=== PATIENT | female | born 1940 | race Caucasian/White ===

== ENCOUNTER 2023-12-16 20:25 | Emergency (ER) | payer MEDICARE, SELFPAY ==
[2023-12-16] VITALS (18 sets, daily range): BP systolic 149–207; BP diastolic 60–144; PULSE 73–95; RESP 13–23; TEMP 37.2; O2SAT 90–96
--- NOTE | ~2023-12-16 | XR_ITS ---
XR chest 1V portable Ordering provider: Shraddha Mackenzie MD History: 83 years Female with . stroke w/u . Comparison: None. FINDINGS: MEDIASTINUM: The cardiac silhouette is not enlarged. Congestive duane LUNGS: No infiltrates, effusions or pneumothorax. OTHER: No free air under the diaphragm. Degenerative spine. IMPRESSION: No acute cardiopulmonary pathology. Reviewed, dictated and finalized at location A.
--- NOTE | ~2023-12-16 | CT_ITS ---
CTA brain carotid Ordering provider: Shraddha Mackenzie MD History: . cva . Comparison: None. Technique: CT angiogram head and neck was performed following timed intravenous injection of contrast . Thin slice axial images and reformatted coronal images were obtained. Three dimensional reformatted images of the brain were also obtained using a [employer] workstation. Radiation reduction technique ut ilized.The dose-length product was 768.39 mGy-cm. 100 mL Omnipaque 350 was given IV. FINDINGS: HEAD: --ANTERIOR AND MIDDLE CEREBRAL ARTERIES AND BRANCHES: Normal caliber and contour. --INTERNAL CAROTID ARTERIES: Mild atheromatous disease but no significant stenosis. No occlusion. --BASILAR ARTERY AND BRANCHES: Normal caliber and contour. No atheromatous disease. --POSTERIOR CEREBRAL ARTERIES: Normal caliber and contour --POSTERIOR COMMUNICATING ARTERIES: The right is demonstrated and continues as posterior cerebral art good. The left is Not visualized which is probably related to congenital absence or small size. --ANEURYSM: None visualized. --BRAIN: Please refer to report of CT head performed the same day. --BONES AND SUPERFICIAL SOFT TISSUES: Please refer to report of CT head performed the same day. --PARANASAL SINUSES AND MASTOIDS: Please refer to report of CT head done the same day. The left transverse venous sinus is not well demonstrated may be congenitally absent or thrombosis ei ther acute or chronic. NECK: --RIGHT CERVICAL CAROTID SYSTEM: Mild atheromatous disease of the carotid bulb and proximal internal carotid artery without significant stenosis. Percent stenosis per NASCET criteria is 0% No carotid d issection. Otherwise, no significant atheromatous disease or stenosis of the cervical carotid system. --LEFT CERVICAL CAROTID SYSTEM: Mild atheromatous disease of the carotid bulb and proximal internal c arotid artery without significant stenosis. Percent stenosis per NASCET criteria is 0%. No carotid d issection. Otherwise, no significant atheromatous disease or stenosis of the cervical carotid system. --VERTEBRAL ARTERIES: Normal caliber and contour. --SOFT TISSUES: Normal. --CERVICAL SPINE: Age appropriate degenerative changes. IMPRESSION: 1. CTA head and neck. Percent stenosis per NASCET criteria is 0%. 2. No significant stenosis or occlusion seen in the intracranial vessels. 3. The left transverse venous sinus is not demonstrated which may be congenitally absent or acute ve rsus chronic process. Clinical correlation advised Reviewed, dictated and finalized at location A. IMPRESSION: 1. CTA head and neck. Percent stenosis per NASCET criteria is 0%. 2. No significant stenosis or occlusion seen in the intracranial vessels. 3. The left transverse venous sinus is not demonstrated which may be congenita lly absent or acute versus chronic process. Clinical correlation advised
--- NOTE | ~2023-12-16 | CT_ITS ---
EXAMINATION: CT brain wo con DATE: 12/16/2023 23:16 INDICATION: Worsening weakness TECHNIQUE: Computed tomography (CT) of the head was performed without intravenous contrast. Sagittal and coronal reconstructions were performed. The mA was adjusted according to patient size. Iterative reconstruction technique was employed. The dose-length product was 681.00 mGy-cm. COMPARISON: head CT head CT angiogram from 12/16/2023 at 8:49 PM FINDINGS: No acute intracranial hemorrhage, acute infarction or abnormal extra axial fluid collection. There is some residual contrast from the prior contrast enhanced imaging. There is mild scattered white matte r hypoattenuation consistent with chronic small vessel ischemic disease. Ventricles are normal and s ymmetric. No mass/mass effect. Changes of bilateral intraocular lens replacement. The orbits, paranas al sinuses and mastoid air cells are normal. IMPRESSION: 1. No acute intracranial process. 2. Mild scattered white matter hypoattenuation consistent with chronic small vessel ischemic disease. Reviewed, dictated and finalized at location A. IMPRESSION: 1. No acute intracranial process. 2. Mild scattered white matter hypoattenuation consistent with chronic small ve ssel ischemic disease.
--- NOTE | ~2023-12-16 | CT_ITS ---
CT brain wo con Ordering provider: Shraddha Mackenzie MD History: 83 years Female with . CVA . Comparison: None. Technique: CT of the head without contrast. Radiation reduction technique utilized.The dose-length product was 605.33 mGy-cm. FINDINGS: BRAIN PARENCHYMA AND CSF SPACES: Mild leukoaraiosis and diffuse cortical atrophy. Mild atheromatous d isease. P No midline shift, mass effect or hemorrhage. The brain parenchyma and CSF spaces are other cage normal. VISUALIZED PARANASAL SINUSES: Well aerated. MASTOIDS: Well aerated. BONES: The bones appear intact. SOFT TISSUES: Visualized nasopharynx is normal. Superficial soft tissues are normal. IMPRESSION: No acute intracranial findings. Reviewed, dictated and finalized at location A.
--- NOTE | 2023-12-16 20:30 | ECG_ITS ---
Test Date: 2023-12-16 21:05:36 Measurements Intervals [place] Rate: 88 P: 55 AR: 252 QRS: 4 QRSD: 92 T: 23 QT: 347 QTc: 421 Interpretive Statements SINUS RHYTHM WITH FIRST DEGREE AV BLOCK BORDERLINE ST ABNORMALITY- DIFFUSE LEADS BASELINE ARTIFACT- I, II, III, AVR, AVL, AVF, V1-V6 BORDERLINE ECG No previous ECG available for comparison Electronically Signed On 12-17-2023 06:33:27 CDT by Sean Palacios D.O.
--- NOTE | 2023-12-16 20:42 | ED.NEUROSD ---
HPI - Neuro Symptoms/Deficit General Chief Complaint: Suspected CVA Stated Complaint: code stroke Time Seen by Provider: 12/16/23 20:42 Source: patient and EMS Mode of arrival: EMS History of Present Illness HPI Narrative: Patient presents with concern for stroke. She was a stroke activation by EMS. Reported last known well is 7:00 p.m. confirmed that this was a time that she was witnessed to be normal. Patient verifies she was at her baseline mentation and acutely at approximately 7:00 p.m. she noticed changes. No history of TIA or CVA per patient. Reported blood glucose of 109 mg/dL for EMS. She was also reportedly a hypertensive for EMS. No medications have yet been given. Patient states she was recently placed on blood pressure medication but then states this was incorrect, she is only on a statin and a thyroid medication. Not on anticoagulation. Right hand dominant. Related Data Allergies Allergy/AdvReac Type Severity Reaction Status Date / Time No Known Allergies Allergy Verified 12/16/23 21:32 [facility] Past Medical History Medical History (Updated 12/16/23 @ 22:26 by Shraddha Mackenzie MD) Hyperlipidemia Right hand dominant Thyroid disorder Social History Social History Living arrangements: alone Exam Narrative: GENERAL: Well-appearing, well-nourished, and in no acute distress. HEAD: Normocephalic, atraumatic. EYES: Non injected, non icteric. Horizontal extraocular movements intact. Difficulty performing visual field assessment though appears to have difficulty with peripheral duong. ENT: Nares clear, no rhinorrhea or epistaxis. NECK: Supple. CHEST: Speaking in full sentences. No respiratory distress. HEART: Regular rate and rhythm. . ABDOMEN: Soft, nondistended. EXTREMITIES: Normal range of motion. No lower extremity edema. SKIN: Warm, dry, no rash. NEURO: No focal deficits. Alert and oriented x3. HEENT a responsive and answering questions. Attempts to follow commands though unable to squeeze with the right hand. Partial paralysis of the lower face with complete loss of the nasolabial fold on the right and extension superiorly. No motor drift in the left arm or left leg. Right arm demonstrates no effort against gravity and right leg demonstrates no movement at all. Patient cannot participate any ataxia assessment. Sensation intact throughout. Speaks without aphasia. She is mildly dysarthric, slurs but can be easily understood. No extinction. PSYCH: Normal mood and affect. Course Vital Signs Vital signs: Vital Signs Pulse Rate 92 12/16/23 20:30 Respiratory Rate 18 12/16/23 20:30 Blood Pressure 170/144 H 12/16/23 20:30 Pulse Oximetry 90 12/16/23 20:30 Pulse Rate 73 12/16/23 22:16 Respiratory Rate 13 12/16/23 21:36 Blood Pressure 181/71 H 12/16/23 22:16 Pulse Oximetry 90 12/16/23 21:36 Oxygen Delivery Room Air 12/16/23 20:57 MDM - Neuro Symptoms/Deficit MDM Narrative Medical decision making narrative: This is a 83 year old female who presents to the emergency department with concern for possible stroke. Last known well is 7pm. The patient is protecting their airway which is patent. An IV is established by EMS; blood work sent to the lab for evaluation. An EKG will be performed. POC glucose for EMS was 109mg/dL. NIHSS was evaluated per below. The patient was transported immediately to CT scan per stroke protocol for evaluation of acute intracranial bleed. NIHSS Level Of consciousness: 0 Month and age:0 Follows commands:0 Gaze palsy:0 Visual duong:2 Facial palsy:2 Left arm motor drift:0 Right arm motor drift:3 Left leg motor drift:0 Right leg motor drift:4 Limb ataxia:0 (does not understand) Sensation:0 Aphasia:0 Dysarthria:1 Extinction: 0 Total: 12 CT per stroke protocol shows: no acute intracranial process. Patient given labetalol 10 mg and blood pressure is 181/82. T
[2023-12-16 20:54] LABS: Basophils Percent Auto 0.5 % (0.2-1.2); Eosinophils Absolute Auto 0.1 K/mm3 (0-0.3); Eosinophils Percent Auto 1.3 % (0-4.4); Hematocrit 39.7 % (37.0-47.0); Hemoglobin 13.6 g/dL (12.0-15.0); Immature Granulocyte Absolute 0.03 K/mm3 (0.00-0.031); Immature Granulocyte Percent A 0.4 % (0-0.5); Lymphocytes Absolute Auto 2.56 K/mm3 (0.9-3.2); Lymphocytes Percent Auto 32.7 % (18.3-44.2); Mean Corpuscular HGB Conc 34.3 g/dl (32-36); Mean Corpuscular Hemoglobin 32.6 pg (26-34); Mean Corpuscular Volume 95.2 fl (80-100); Mean Platelet Volume 9.8 fl (7.4-10.4); Monocytes Absolute Auto 0.8 K/mm3 (0.1-0.6); Monocytes Percent Auto 9.7 % (2.6-8.5); Neutrophils Absolute Auto 4.3 K/mm3 (1.3-6.7); Neutrophils Percent Auto 55.4 % (45.5-73.1); Platelet Count Result 246 k/mm3 (150-375); Red Blood Count 4.17 M/mm3 (4.2-5.4); Red Cell Distribution Width 12.2 % (11.5-14.5); White Blood Count 7.8 K/mm3 (4.5-10.0)
[2023-12-16 20:58] LABS: Glucose Point of Care 113 mg/dl (65-105)
[2023-12-16 21:07] LABS: Alanine Aminotransferase 27 U/L (6-35); Albumin Level 4.5 g/dL (3.5-5.1); Alkaline Phosphatase 106 U/L (38-126); Anion Gap 11 mmol/L (4-12); Aspartate Amino Transferase 39 U/L (14-36); Bilirubin,Total 0.6 mg/dL (0.2-1.3); Blood Urea Nitrogen 24 mg/dL (7-17); Calcium 9.2 mg/dL (8.4-10.2); Carbon Dioxide 26 mmol/L (22-30); Chloride 100 mmol/L (98-107); Estimated CRCL calculation 40 ml/min; Estimated Glomerular Filt Rate > 60; Glucose 109 mg/dL (65-110); Potassium 4.4 mmol/L (3.4-5.0); Sodium 137 mmol/L (137-145)
[2023-12-16 21:19] LABS: Troponin I < 0.012 ng/mL (0.000-0.034)
[2023-12-16 21:28] LABS: INR 0.9; Partial Thromboplastin Time 26.5 Seconds (22.3-36.8); Prothrombin Time 12.6 Seconds (11.1-14.7)
[2023-12-16] MEDS: LABETALOL HCL INJ 100 MG/20 ML VIAL 10 MG IV PUSH ×2 (21:32→21:53)
[2023-12-16] MEDS: TENECTEPLASE 50 MG/10 ML VIAL 16.5 MG IV PUSH (21:51)
[2023-12-16 21:58] LABS: Ethanol < 10 mg/dL (<10); Magnesium 2.3 mg/dL (1.6-2.3)
[2023-12-16] MEDS: niCARdipine 20 MG/200 ML 20 MG/200 ML BAG 50 MG IV CONT (22:16)
[2023-12-16 22:19] LABS: Add Urine Microscopic? YES; Appearance Urine Clear (Clear); Bacteria Urine None Seen /hpf; Bilirubin Urine Negative (Negative); Blood Urine Negative (Negative); Color Urine Yellow (Yellow); Glucose Urine UA Negative (Negative); Ketones Urine Negative (Negative); Leukocyte Esterase Ur 1+ LEU/UL (Negative); Need Manual Microscopic Reviewed; Nitrate Urine Negative (Negative); Non Pathogenic Casts 0-2; Protein Urine Negative (Negative); RBC Urine 0-2 /hpf (0-2); Squamous Epithelial Cell Urine None Seen /hpf (Few); Urobilinogen Urine 0.2 mg/dL (<2.0); WBC Urine 0-5 /hpf (0-3); pH Urine 7.5 (5.0-9.0)
--- NOTE | 2023-12-16 22:58 | PC.NURSE ---
pt noted to have a right facial droop, and some slurred speech. repeat NIH completed, discussed with Dr Barber. Patient to get a repeat CT. Ct aware.
--- NOTE | 2023-12-16 23:35 | PC.NURSE ---
Nicardipine drip moved to [employer] own pump. volume infused at this facility - 61.2 ML
[2023-12-22 12:49] LABS: Estimated CRCL calculation 36 ml/min; Estimated Glomerular Filt Rate 60
== END 2023-12-16 23:49 | disposition short-term general hospital (02) ==
PROVIDERS: Emergency Provider Student in an Organized Health Care Education/Training Program
DX: G81.91 Hemiplegia, unspecified affecting right dominant side (principal); E78.5 Hyperlipidemia, unspecified; E07.9 Disorder of thyroid, unspecified; Z79.899 Other long term (current) drug therapy; R94.31 Abnormal electrocardiogram [ECG] [EKG]
CPT/HCPCS: 36415; 70450; 70496; 70498; 71045; 80053; 80307; 81001; 82565; 82948; 83735; 84484; 85025; 85610; 85730; 87086; 93005; 96365; 96375; 99285; J2404; J3101; Q9967

== ENCOUNTER 2024-02-02 10:44 | Outpatient (CLI) | payer MEDICARE, SELFPAY ==
--- NOTE | ~2024-02-02 | XR_ITS ---
Clinical Indication: Cough PA and lateral views of the chest: Comparison: 12/16/2023 Findings: The lungs are clear, without evidence of focal consolidation or pleural effusion. Cardiome diastinal silhouette is within normal limits. Bones and soft tissues are unremarkable. Impression: Normal chest. Reviewed, dictated and finalized at location . Impression: Normal chest.
== END 2024-02-02 10:45 | disposition home or self-care (01) ==
LOC: MICIMG 10:46
PROVIDERS: PCP Internal Medicine; Visit Provider Internal Medicine
DX: R05.9 Cough, unspecified (principal)
CPT/HCPCS: 71046

== ENCOUNTER 2024-04-01 08:29 | Emergency (ER) | payer MEDICARE, SELFPAY ==
--- NOTE | ~2024-04-01 | XR_ITS ---
EXAMINATION: XR chest 2V DATE: 04/01/2024 09:31 INDICATION: Cough and wheezing. TECHNIQUE: Frontal and lateral views of the chest were obtained. COMPARISON: Chest 2 views 02/02/2024 FINDINGS: A calcified right lung nodule is consistent with old granulomatous disease. No pleural effu noemi or pneumothorax. The heart size is normal. IMPRESSION: 1. No acute cardiopulmonary disease. Reviewed, dictated and finalized at location A. ERY MANAGER
[2024-04-01 09:14] VITALS: BP 162/88; PULSE 75; RESP 26; TEMP 36.9; O2SAT 98
--- NOTE | 2024-04-01 09:46 | ED_ITS ---
HPI - URI/Sore Throat General Chief Complaint: Upper Respiratory Infection Stated Complaint: Trouble Breathing/Wheezing Time Seen by Provider: 04/01/24 09:38 Source: patient, family and RN notes reviewed Mode of arrival: ambulatory Limitations: no limitations History of Present Illness HPI Narrative: Family presents patient today complaining of cough, shortness of breath, and slight runny nose since last night. No [id number] treatment prior to arrival. Patient states she has never had shortness of breath or wheezing before. No history of asthma or COPD. Related Data Allergies Allergy/AdvReac Type Severity Reaction Status Date / Time No Known Allergies Allergy Verified 04/01/24 09:25 Review of Systems Review of Systems: CONSTITUTIONAL: Denies body aches, fever, chills, or sweats. EYES: Denies visual changes, redness, or discharge. ENT: Denies congestion, sore throat, or otalgia.+ rhinorrhea CARDIOVASCULAR: Denies chest pain, palpitations, or edema. RESPIRATORY: + cough, shortness of breath, wheezing GASTROINTESTINAL: Denies abdominal pain, nausea, vomiting, or diarrhea. GENITOURINARY: Denies dysuria or hematuria. SKIN: Denies rash, itching, or wounds. MUSCULOSKELETAL: Denies back pain, joint pain, or myalgia. NEUROLOGIC: Denies headache, numbness, tingling, or weakness. PSYCH: Denies depression or anxiety. [facility] Past Medical History Medical History Hypothyroidism Right hand dominant Hyperlipidemia Thyroid disorder Social History Social History Smoking status: Never smoker Alcohol intake: never Substance use: never Substance use type: does not use Do You Feel Safe in your Home?: Yes Lack of Transportation: No Lack of Food: Never True Current Housing: I Have Housing Concerned About Future Housing: No Difficulty Paying Gas/Electric Bills: No Difficulty Paying for Meds: No Currently Unemployed: No Education: High School Diploma/GED Difficulty w/ Childcare or Family Care: No Living arrangements: alone Gender identity (if verbalized by the patient): Female Spiritual care concerns: No Comments At time of signature, I have reviewed and agree with nursing past medical, surgical, social and family history unless otherwise noted. Please see nursing chart for further information. There is no relevant family history pertinent to the presenting complaint Exam Narrative: GENERAL: Well-appearing, well-nourished, and in no acute distress. HEAD: Normocephalic, atraumatic. EYES: EOMI. No redness or drainage. Conjunctivae normal. ENT: Mucous membranes pink and moist. Nares clear. No rhinorrhea. TMs normal bilaterally. Throat normal. Uvula midline. NECK: Normal AROM. Supple. No lymphadenopathy. CHEST: No respiratory distress. Inspiratory and expiratory wheezes throughout. Patient is calm and breathing comfortably through her nose at rest. HEART: Regular rate and rhythm. No murmur appreciated. MUSCULOSKELETAL: No bony tenderness. EXTREMITIES: Normal range of motion. No edema. SKIN: Warm, dry, no rash. Capillary refill normal. Normal skin turgor. NEURO: No focal deficits. Alert and oriented x3. PSYCH: Normal affect. No signs of depression or anxiety. Course Course Level of Care: Express Care Visit Vital Signs Vital signs: Vital Signs Temperature 98.4 F 04/01/24 09:14 Pulse Rate 75 04/01/24 09:14 Respiratory Rate 26 H 04/01/24 09:14 Blood Pressure 162/88 H 04/01/24 09:14 Pulse Oximetry 98 04/01/24 09:14 Oxygen Delivery Room Air 04/01/24 09:14 Temperature 98.4 F 04/01/24 09:14 Pulse Rate 71 04/01/24 10:35 Respiratory Rate 18 04/01/24 10:35 Blood Pressure 164/76 H 04/01/24 10:35 Pulse Oximetry 95 04/01/24 10:35 Oxygen Delivery Room Air 04/01/24 10:35 Reviewed MDM - URI/Sore Throat MDM Narrative Medical decision making narrative: COVID and influenza negative. Chest x-ray negative for pneumonia. Symptoms likely due to respiratory virus. Wheezing has completely resolved after albuterol nebulizer treatment. Recommend prednisone and an albuterol inhaler as well as starting some Mucinex. Family and patient agree to plan. Anticipatory guidance given. ED precautions given. Differential Diagnosis Differential diagnosis: Likely upper respiratory infection, viral infection, influenza and other (COVID-19) Lab Data Attestation: I reviewed the patient's lab results. Labs: Lab Results 04/01/24 Range/Units 10:09 POC Influenza A Ag Negative (Negative) POC Influenza B Ag Negative (Negative) POC SARS CoV-2 Ag Negative (Negative) Imaging Data Radiologist's impression: ITS Impressions Chest X-Ray 04/01/24 09:43 IMPRESSION: 1. No acute cardiopulmonary disease. Critical Care Time Critical Care Time Critical Care Time: No Discharge Plan Discharge Clinical Impression: Acute lower respiratory infection Patient Disposition: Home, Self-Care Condition: Stable Instructions: Acute Bronchitis (ED) Additional Instructions: Your COVID-19, influenza, and chest x-ray are all negative today. Please take the prednisone and use albuterol inhaler as prescribed. Start Mucinex to help break up any chest congestion. Follow-up with your PCP in 3-4 days if symptoms are not improving. Please go to the ER immediately if symptoms worsen. Your blood pressure was elevated above 120/80 today at Urgent Care. This puts you above the threshold for follow up. Please schedule a followup visit with your personal physician as soon as possible, for further evaluation and treatment. Even blood pressure exceeding 120/80 may indicate pre-hypertension. Patient Language: Japanese Prescriptions: New prednisone 20 mg tablet 40 mg PO DAILY 5 Days Qty: 10 0RF albuterol sulfate 90 mcg/actuation HFA aerosol inhaler 2 inh inhalation Q4-6H PRN (Reason: shortness of breath or wheezing) Qty: 8.5 0RF (DME) [employer] MDI Spacer Spacer See Rx Instructions .ROUTE .MEDSUPPLY Qty: 1 0RF Rx Instructions: As directed No Action acetaminophen 325 mg Tablet 650 mg PO Q6H PRN (Reason: Mild Pain (1-3) Or Fever) Qty: 90 0RF lisinopril 10 mg Tablet 10 mg PO DAILY Qty: 30 0RF carvedilol [Coreg] 6.25 mg Tablet 6.25 mg PO BIDWM Qty: 60 0RF Rx Instructions: must administer with a meal/food simvastatin 40 mg Tablet 40 mg PO HS Qty: 30 0RF levothyroxine 75 mcg Tablet 75 mcg PO DAILY Qty: 30 0RF aspirin 81 mg Tablet,Chewable 1 tablet PO DAILY Qty: 30 0RF Follow-up/Referrals: Ramirez,Eladio Garcia MD [Primary Care Provider] - Time of Disposition: 10:26
[2024-04-01] MEDS: ALBUTEROL SULFATE NEB 2.5 MG/3 ML INH INHALATION (09:55)
[2024-04-01 10:10] LABS: EDCOVIDSCREEN Negative (Negative)
[2024-04-01 10:11] LABS: EDINFLUASCREEN Negative (Negative); EDINFLUBSCREEN Negative (Negative)
[2024-04-01 10:35] VITALS: BP 164/76; PULSE 71; RESP 18; O2SAT 95
== END 2024-04-01 10:35 | disposition home or self-care (01) ==
PROVIDERS: Emergency Provider Nurse Practitioner; PCP Internal Medicine
DX: J22 Unspecified acute lower respiratory infection (principal); Z20.822 Contact with and (suspected) exposure to COVID-19; E03.9 Hypothyroidism, unspecified; E78.5 Hyperlipidemia, unspecified
CPT/HCPCS: 71046; 87426; 87804; 99213; G0463